=== PATIENT | female | born 1940 | race Caucasian/White ===

== ENCOUNTER 2016-09-21 10:05 | Day surgery (SDC) | payer BC ==
--- NOTE | ~2016-09-21 | EGD ---
EGD REPORT [facility] [address] [id number] NAME: SOWMYA HOOD : [birth year] STATUS : REG [facility] PAT#: [id number] AGE: 75 ADM/REG DATE : 09/21/16 MR#: [id number] REPORT SERV DATE: 09/21/16 DICTATED BY: IRINEO MEDINA DATE: 09/21/16 REPORT STATUS : Draft TRANSCRIBED BY: [facility] DATE: 09/21/16 Endoscopy Center Patient Name: Sowmya Hood Date of : 1940 Attending MD: IRINEO MEDINA MD Procedure Date No Time: 09/21/2016 Procedure: Colonoscopy Indications: FH of Colonic Polyps - 1st degree relative, Change in bowel habits Referring MD: LÁZARO ARANGO Medicines: as per anesthesia Complications: No immediate complications. Procedure: Pre-Anesthesia Assessment: - ASA Grade Assessment: III - A patient with severe systemic disease. After I obtained informed consent, the scope was passed under direct vision. Throughout the procedure, the patient's blood pressure, pulse, and oxygen saturations were monitored continuously. The PCF [id number] was introduced through the anus and advanced to the cecum, identified by appendiceal orifice and ileocecal valve. The colonoscopy was somewhat difficult due to restricted mobility of the colon, significant looping and a tortuous colon. The patient tolerated the procedure. The quality of the bowel preparation was adequate to identify polyps. Findings: The perianal and digital rectal examinations were normal. The colon (entire examined portion) appeared normal. Impression: - The entire examined colon is normal. Recommendation: - Continue present medications. Procedure Code(s): --- Professional --- 30502, Colonoscopy, flexible, proximal to splenic flexure; diagnostic, with or without collection of specimen(s) by brushing or washing, with or without colon decompression (separate procedure) Diagnosis Code(s): --- Professional --- Z83.71, Family history of colonic polyps R19.4, Change in bowel habit EGD REPORT [facility] [address] [id number] NAME: SOWMYA HOOD : [birth year] STATUS : REG [facility] PAT#: [id number] AGE: 75 ADM/REG DATE : 09/21/16 MR#: [id number] REPORT SERV DATE: 09/21/16 DICTATED BY: IRINEO MEDINA. DATE: 09/21/16 REPORT STATUS : Draft TRANSCRIBED BY: [employer] DATE: 09/21/16 CPT copyright 2013 [employer]. All rights reserved. The codes documented in this report are preliminary and upon hand brim ironer review may be revised to meet current compliance requirements. IRINEO MEDINA MD 09/21/2016 12:41 PM This report has been signed electronically. Number of Addenda: 0 Note Initiated On: 09/21/2016 11:13 AM Scope Withdrawal Time 0 hours 9 minutes 18 seconds [address] [id number]
[~2016-09-21 10:05] MED LIST: APOKYN SC; ASAB PO; AZILECT1 MG PO; B12 PO; BAYER500 MG PO; CELEXA20 PO; CO Q-10100 MG PO; CYANO1000T PO; DIOV160 PO; EFFEX75 PO; MYRBETRIQ50 MG PO; NEUPRO1 EAC1 TOP; PROTONIX PO; PROTONIX20 MG PO; REQUIP2 PO; SEROQUEL25 PO; SIN25 PO; SYMM100 PO; TRAZ100 PO; TYLENOL PM PO; UNISOM25 MG OR; VITAMIN D1000 UNI1 OR; VITAMIN D31000 UNIT PO; VITE1000 PO; X25 PO; ZANAFLEX 4 MG TA4 MG PO; ZOCOR40 PO
== END 2016-09-21 23:59 | disposition home or self-care (01) ==
LOC: DMU 10:05
PROVIDERS: Internal Medicine Gastroenterology
PROC: 0DJD8ZZ Inspection of Lower Intestinal Tract, Via Natural or Artificial Opening Endoscopic (ICD-10-PCS; principal; 2016-09-21 11:30)
DX: R19.4 Change in bowel habit (principal); G20 Parkinson's disease; I10 Essential (primary) hypertension; Z79.899 Other long term (current) drug therapy; Z83.71 Family history of colonic polyps; Z79.82 Long term (current) use of aspirin; Z98.41 Cataract extraction status, right eye; Z98.42 Cataract extraction status, left eye; Z98.51 Tubal ligation status; Z98.890 Other specified postprocedural states
CPT/HCPCS: J0461